=== PATIENT | female | born 1940 | race Caucasian/White ===

== ENCOUNTER → 2023-12-11 09:51 | Outpatient (REF) | payer MEDICARE, SELFPAY ==
[2023-12-11 13:08] LABS: ALT (SGPT) 50 U/L (0-35); AST (SGOT) 37 U/L (14-36); Albumin 3.3 g/dl (3.5-5.0); Alkaline Phosphatase 56 U/L (38-126); Blood Urea Nitrogen 27 mg/dl (7-17); Calcium 8.9 mg/dl (8.4-10.2); Carbon Dioxide 30 mmol/L (22-30); Chloride 102 mmol/L (98-107); Glucose 87 mg/dl (70-99); Sodium 139 mmol/L (135-145); Total Bilirubin 1.1 mg/dl (0.2-1.3); Total Protein 5.3 g/dl (6.3-8.2); eGFR > 60.00
== END ==
LOC: HWLAB 09:51
PROVIDERS: ATTENDING PHYSICIAN Nurse Practitioner; FAMILY PHYSICIAN Student in an Organized Health Care Education/Training Program
DX: I48.0 Paroxysmal atrial fibrillation (principal)
CPT/HCPCS: 36415; 80053

== ENCOUNTER → 2023-12-17 08:46 | Outpatient (REF) | payer MEDICARE, SELFPAY ==
[2023-12-17 09:17] LABS: % Basophils 0.4 % (0-2); % Immature Granulocytes 0.3 % (0-0.5); % Lymphocytes 9.4 % (20.5-51.1); % Neutrophils 79.9 % (42.2-75.2); Absolute Eosinophils 0.2 10^3/uL (0-0.7); Absolute Monocytes 0.9 10^3/uL (0.1-0.6); Absolute Neutrophils 8.7 10^3/uL (1.4-6.5); Hematocrit 50.4 % (37.0-47.0); Hemoglobin 16.3 g/dL (12.0-16.0); Mean Corp Hgb Conc. 32.3 g/dL (33.0-37.0); Mean Corpuscular Hgb 30.9 pg (27.0-31.0); Mean Corpuscular Volume 95.5 fL (81.0-99.0); Mean Platelet Volume 9.7 fL (7.4-10.4); Nucleated Red Blood Cells % 0 %; Platelet Count 276 10^3/uL (130-400); Red Blood Cell Count 5.28 10^6/uL (4.20-5.40); White Blood Cell Count 10.9 10^3/uL (4.8-10.8)
[2023-12-17 09:47] LABS: ALT (SGPT) 50 U/L (0-35); AST (SGOT) 43 U/L (14-36); Albumin 3.8 g/dl (3.5-5.0); Alkaline Phosphatase 72 U/L (38-126); Blood Urea Nitrogen 23 mg/dl (7-17); Calcium 9.1 mg/dl (8.4-10.2); Carbon Dioxide 28 mmol/L (22-30); Chloride 105 mmol/L (98-107); Glucose 99 mg/dl (70-99); Potassium 4.1 mmol/L (3.5-5.1); Sodium 139 mmol/L (135-145); Total Bilirubin 1.2 mg/dl (0.2-1.3); Total Protein 5.9 g/dl (6.3-8.2); eGFR > 60.00
== END ==
LOC: SDSPAT 08:46
PROVIDERS: ATTENDING PHYSICIAN Internal Medicine Cardiovascular Disease; FAMILY PHYSICIAN Student in an Organized Health Care Education/Training Program; OTHER PHYSICIAN Internal Medicine Cardiovascular Disease
DX: Z01.818 Encounter for other preprocedural examination (principal); I48.19 Other persistent atrial fibrillation
CPT/HCPCS: 36415; 80053; 85025; 86850; 86900; 86901; 93005

== ENCOUNTER 2023-12-24 06:14 | Day surgery (SDC) | payer MEDICARE, SELFPAY ==
[2023-12-17 08:55] VITALS: BMI 19.9
[2023-12-24] VITALS (21 sets, daily range): BP systolic 103–131; BP diastolic 66–100; BMI 19.4
[2023-12-24 08:49] LABS: ACT-LR - POC 342 Seconds (116-155)
[2023-12-24 09:09] LABS: ACT-LR - POC 316 Seconds (116-155)
[2023-12-24 09:29] LABS: ACT-LR - POC 314 Seconds (116-155)
[2023-12-24] MEDS: IBUTILIDE 1 MG IV (09:55)
[2023-12-24 10:31] LABS: ACT-LR - POC 384 Seconds (116-155)
--- NOTE | 2023-12-24 10:44 | ITS.CL.ABL ---
[employer] Professional - Ablation
Ablation
Procedure Report:
AFIB ablation:
Ms. Hernandez is a very pleasant 83 yr old woman with medical history significant for symptomatic persistent atrial fibrillation, SSS s/p Dual chamber PPM and severe tricuspid regurgitation, failed DCCV on Sotalol and is recommended rhythm control and
is here in the EP lab for atrial fibrillation ablation
Date of Procedure:
12/24/2023
Indications:
Symptomatic atrial fibrillation
Pre-Operative Diagnosis:
Persistent Atrial fibrillation
Post-Operative Diagnosis:
Persistent Atrial fibrillation
Procedure Performed:
Atrial fibrillation ablation with wide area circumferential ablation (WACA) approach for pulmonary vein isolation
Atypical atrial flutter ablation with roof line formation
Posterior wall isolation
Substrate modification with epicardial connections ablation in the posterior wall
Mitral flutter ablation
Right heart catheterization and manipulation of the RV lead.
Performing Physician:
Chloé Heaton MD
Assistants:
EP staff
Anesthesia:
See anesthesia records
Detailed Description of the Procedure:
Written informed consent was obtained from the patient after a full explanation of the risks and benefits of the procedure including the risks of sedation and anesthesia.
The patient was brought to the electrophysiology laboratory in stable condition in fasting state. Continuous electrocardiographic and hemodynamic monitoring was initiated.
The initial rhythm was atrial fibrillation.
Device Interrogation:
Patient has Medtr[employer] dual chamber PPM in place. The device was interrogated at the start of the case. The device and the lead was working normally. The pacing parameters were changed during the case from 60 bpm to 85 bpm to suppress atrial ectopy
and atrial fibrillaiton. The programmer or analyst remained connected in the room throughout the procedure.
Time out:
The procedure site was meticulously prepared with surgical scrub and allowed to dry with no pooling. Sterile draping was applied to cover the procedure site. The image intensifier was draped with sterile bag and positioned over the patient. After
infusion of local anesthetic, vascular access was obtained under ultrasound guidance and sheaths were placed over guide wire as detailed below.
Sheath and Catheter Placement:
The following catheters / sheaths were placed
Sheaths:
��������������� Agilis sheath in right femoral vein upgraded from 8Fr in right femoral vein
��������������� 9Fr in right femoral vein
���������������
Catheters:
������������� [employer] Guido Thermacool STSF bidirectional (D/F) - at locations of HRA, RV, LA and LV.
������������� Pentaray catheter � at locations of RA� and LA
������������� ICE catheter - at locations of RA, SVC, and RV.
Intracardiac ECHO:
An 8-[place] AcuNav intracardiac ECHO (ICE) probe was advanced through the 9-[place] sheath in the femoral vein into the right atrium under fluoroscopic and ICE ultrasound image guidance and a baseline ECHO study was performed. The left atrial size
was enlarged. There was trace tricuspid regurgitation. The aortic valve was normal. There was borderline normal left ventricular size and function. There was no pericardial effusion. The CHARANJIT has low velocities noted on Doppler in atrial fibrillation
and in sinus. There was significant spontaneous contrast noted. All the four veins were identified and good flow noted.
During the procedure, ICE was used for monitoring of complications, guidance of trans-septal puncture, monitor the catheter position and tracking ablation lesions. No change in the pericardial space noted throughout the procedure.
Trans-septal Puncture:
Heparin was initiated and infused to maintain appropriate ACT.
A J-tipped guidewire was advanced through the 8-[place] sheath in the right femoral vein into the superior vena cava under fluoroscopic and ICE guidance. The 8-[place] sheath was exchanged for an Agilis sheath which was advanced into the superior vena
cava. A BRK needle was advanced until the tip was slightly behind the tip of the dilator inside the Agilis. The apparatus was withdrawn until it was in contact with the fossa ovalis. The position was adjusted based on fluoroscopy and ultrasound
images from ICE. Under fluoroscopic, hemodynamic and ICE ultrasound guidance, left atrium was cannulated by advancing the needle. Once atrial septum was cannulated, the needle was pulled back and saline injection was injected confirming the LA
access. Both the sheath and the dilator was advanced into the left atrium. The dilator with the needle was withdrawn. Blood was aspirated from the Agilis sheath and arterial blood confirmed. The sheath was flushed. Saline injection noted into the
left atrium on ICE. The pressure waveform was checked ad LA pressure measured. The penta-ray catheter was advanced in the Agilis sheath into the left pulmonary vein.
The 3-D mapping was done and then the penta-ray was switched to ablation catheter and back to penta-ray as needed.
3D Electroanatomic Mapping:
Using the Pentaray catheter advanced through Agilis sheath into the left atrium, an electroanatomic map (EAM) of the left atrium was created using [employer] mapping system. The map was used for localization of catheter position and
tacking of ablation lesions. The EAM of the left atrium showed 4 pulmonary veins with all four electrically connected to the body the LA. It showed extensive low voltage areas in atrial fibrillation on the posterior and anterior wall of the LA in
atrial fibrillation and in sinus and paced rhythm.
Of note, there was a narrow LSPV noted. The LSPV pressure gradient was recorded with Agilis sheath in and out of the LSPV. The pressure gradient was 2mmHg from LSPV to the LA main body.
Following the EAM, preparations were made for ablation.
Phrenic nerve stimulation attempt:
The right sided pulmonary veins were identified and the anterior antrum and the deep anterior locations of the PVs were check with high output stimulation that showed no phrenic nerve capture in any of the potential ablation areas.
Safe areas were marked and a design line was created through the safe areas of tested antral myocardium for ablation lesions.
Ablation:
Ablation # 1: Pulmonary vein Isolation:
Radiofrequency ablation was performed using an open irrigation, force-sensing 3.5mm radiofrequency ablation catheter ([employer] STSF) by completing the circumferential lesions around the left and right pulmonary veins achieving pulmonary vein
isolation.
All the ablation lesions were guided by the [facility] SURPOINT module with the posterior lesions were limited to 45 aleman for SURPOINT lesion index goal of 400 and anterior wall lesions were limited to SURPOINT index goal of 450.
The esophagus was noted to be on the left side of the LA near the PV antra based on the locations of the esophageal temperature probe. Ablation was stopped for any temperature increase of 0.1 degree C. Max esophageal temperature was 36.7C.
Cardioversion:
Due to the persistence of atrial fibrillation following the PVI, the decision was made to proceed with a cardioversion followed by the remainder of the ablation as detailed below. Therefore, a 200J shock was delivered to the chest via Zoll patches
placed that was not able to restore sinus rhythm but few beats later did achieve sinus rhythm. The patient remained hemodynamically stable throughout.
The LA was mapped in sinus but the catheter ectopy from the posterior wall already caused atrial fibrillation.
With atrial fibrillation returned so quickly, further EAM and ablation planned.
Ablation # 2: Roof line Formation:
Once the patient was in sinus rhythm.� Catheter in the posterior wall was able to generate atrial flutter which was noted to be involving the roofline. A set of radiofrequency ablations were placed on the roof line connecting the left superior
pulmonary vein ablation lesions to the right superior pulmonary vein lesions rings.
Ablation # 3: Posterior wall isolation with the Box lesions set Formation:
There was a significant fractionation seen in the posterior wall and LA AF foci along with CFAE made it clear as the posterior wall is critical in maintaining the atrial fibrillation and the decision was made to isolate the posterior wall by
creating a �Box� lesions.
A set of radiofrequency ablations were placed on the floor line connecting the left inferior pulmonary vein ablation lesions to the right inferior pulmonary vein lesions rings.
Cardioversion # 2:
Once PWI was achieved, another 200 J was delivered that was able to achieve sinus rhythm. This was again short lived.
The posterior wall was mapped that showed epicardial connections at the center of the LA posterior wall.
The penta-ray in the posterior wall showed entrance block and the pacing from the posterior wall showed local capture with no exit from the box lesions confirming the exit block.
Pulmonary vein entrance block in all veins were identified.� Exit block was difficult to assess given patient was going in and out of atrial fibrillation.
Ablation # 4: Posterior wall Focal atrial fibrillatio ablation:
With the box lesion created and block confirmed, the decision was made to ablate the posterior wall severing epicardial connections.
A series of ablations were placed connecting the junction of right superior pulmonary vein and the roof line to the junction of left inferior pulmonary vein and the floor line ablating the ganglion plexi next to both antra forming a Z line.
Patient again went into atrial flutter.
Ablation # 5: Mitral isthmus dependent atypical flutter:
The series of radiofrequency ablations were placed using an open irrigation, force-sensing 3.5mm radiofrequency ablation catheter ([employer] STSF) by creating ablation lesions from the left inferior PV antrum to the mitral annulus.
The tachycardia was organized in the CHARANJIT but the LA was in atrial fibrillation. The mitral flutter line was able to achieve dissociated LA area from the atrial fibrillation that was coming from the RA.
Cardioversion:
Another DCCV at 150J was done that achieved sinus rhythm again. The modified PPM was pacing the heart at 85 bpm.
Tricuspid regurgitation and RV lead manipulation:
Patient's LV pressure was recorded and RA pressure was recorded with the drawl of the catheter from the left atrium to the right atrium. �Preablation LA pressure was 11 mmHg.� Post ablation LA pressure was 14 and the RA pressure was noted to be at
18 mmHg.
The Agilis sheath and the ablation catheter was moved into the right ventricle.� RV pressure was recorded which was 22/12 mmHg.
On intracardiac echo Dopplers, there was severe tricuspid regurgitation identified.� The RV pacer lead was shaped as an S pushing the leaflet of the tricuspid valve on the side.� Using the ablation catheter the RV lead was pulled from the side of
tricuspid leaflet, but the RV lead was attached and only minimum effect was noted.
After manipulation of the RV lead, RV and RA pressure was recorded again.� The RV pressure was 26/9 mmHg while the RA pressure was 16 mmHg. �This shows only modest improvement in the tricuspid regurgitation with still severe TR present
With manipulation of the RV lead, patient went back into atrial fibrillation.� Decision was made to proceed with ibutilide infusion.�
Pharmacologic cardioversion:
A total of 1 mg Ibutilide was infused over 20 minutes. �With half milligram of ibutilide, patient did achieve sinus rhythm but was going in and out of the A-fib and with slight effusion was continued and a total of 1 mg of Ibutilide was given.
With ibutilide infusion, patient will be admitted for rhythm monitoring overnight.
Sick sinus node identified.� Patient has pacemaker and is atrially paced at this time.�
The AV franko functions are deemed within normal range with first-degree AV block.
Arrhythmia Induction:
No sustained arrhythmia was induced at the end of the study.
Procedure End
ICE study was done again that showed no epicardial accumulation. No complications noted.
Following the completion of the EP study, catheters were removed. Protamine 40 mg was given at the end of the procedure and ACT was checked repeatedly. The sheaths were removed and hemostasis achieved with manual compression after acceptable ACT is
achieved.
Pressure measurements:
Pre-Procedure: Mean LA pressure was 11mmHg
��������������� left superior pulmonary vein: 16 mmHg
Post-Procedure: Mean LA pressure was 14mmHg
Post-Procedure: Mean RA pressure was 18mmHg
Post-Procedure: Mean RV pressure was 12/12mmHg
Post RV lead manipulation:
RV pressure: 26/9 mmHg
RA pressure: 16 mmHg
Estimated Blood loss:
<10 cc
Specimens Removed:
None.
Implants / Devices:
None
Urine output:
None
Packs / Drains/ Tubes:
None
Instrument / Sponge Count Correct:
Yes
Complications of the Procedure:
None
Condition of Patient at Time of Transfer:
Hemodynamically stable with no neurological or vascular compromise.
Summary:
Successful atrial fibrillation ablation with circumferential bidirectional line of block at pulmonary vein antra (Pulmonary vein isolation), Atypical atrial flutter ablation with roof line formation, Posterior wall isolation, Substrate modification
with epicardial connections ablation in the posterior wall, Mitral isthmus ablation for mitral flutter, Right heart catheterization
--- NOTE | 2023-12-24 14:37 | PTCARENOTE ---
Rec'd report from Kiesha in the industrial laborer; Rec'd pt into the rm post Afib ablation at approx 1420. Pt AAOx3 w/no c/o CP or SOB. Pt w/R groin site w/figure of 8 suture still intact & dressing C/D/I. Pt on bedrest for 1 hr post fig of 8 suture clipping.
Pt's daughter at bedside, but leaving shortly. Pt's daughter left a note on the pt's whiteboard w/question for MD & w/her info for a callback. Will advise cardiology. Pt's VS stable. Pt w/callbell within reach & plan of care ongoing.
--- NOTE | 2023-12-24 14:54 | CM ---
Chart reviewed. Patient is independent of ADLS, lives alone in the Independent Living at [facility], 0 DME. Patient is not current with VN and is not interested in VN at this time. Plan is for the patient to return home. CM to follow
[2023-12-24] MEDS: ANESTHETIC LOZENGE 1 LOZENGE PO (16:18)
[2023-12-24] MEDS: ELIQUIS 2.5 MG PO (18:38)
--- NOTE | 2023-12-24 19:00 | PTCARENOTE ---
Pt was intermittently going in & out of rapid Afib w/HR in the 120's-130's since approx 1630. At approx 1800 pt went into sustained rapid Afib w/HR still in 120's-130's. 1800 EKG completed as ordered, pt's QTc 479. Dr Heaton notified of QTC & rapid
Afib confirmed by EKG. Orders rec'd & stat IV Amio dose given by oncoming RN. Pt w/no c/o pain. R groin site ecchymotic, but soft w/no signs or symptoms of hematoma or bleeding. Groin dressing C/D/I. Plan of care ongoing.
[2023-12-24] MEDS: CORDARONE 103 MG IV (19:30)
--- NOTE | 2023-12-24 19:38 | PTCARENOTE ---
Assumed care of patient at 1900, vs downloaded by me were from previous shift.
[2023-12-24] MEDS: TOPROL XL 25 MG PO (21:07)
--- NOTE | 2023-12-25 02:52 | PTCARENOTE ---
Right femoral vein site with dressing dry and intact, ecchymotic. She has been in A-fib for most of the shift in the 120's to 140's. Noted to be A-paced in the 80's around 0200. Now back into A-fib in the 120's. Sleeping at intervals.
[2023-12-25 04:30] VITALS: BP 120/87
[2023-12-25 05:55] LABS: Hematocrit 46.7 % (37.0-47.0); Hemoglobin 15.6 g/dL (12.0-16.0); Mean Corp Hgb Conc. 33.4 g/dL (33.0-37.0); Mean Corpuscular Hgb 30.5 pg (27.0-31.0); Mean Corpuscular Volume 91.2 fL (81.0-99.0); Mean Platelet Volume 9.9 fL (7.4-10.4); Platelet Count 267 10^3/uL (130-400); Red Blood Cell Count 5.12 10^6/uL (4.20-5.40); Red Cell Dist. Width 14.4 % (11.5-14.5); White Blood Cell Count 17.5 10^3/uL (4.8-10.8)
[2023-12-25 06:03] LABS: Blood Urea Nitrogen 24 mg/dl (7-17); Calcium 8.7 mg/dl (8.4-10.2); Carbon Dioxide 20 mmol/L (22-30); Chloride 108 mmol/L (98-107); Estimated Creatinine Clearance 41 ml/min; Glucose 141 mg/dl (70-99); Potassium 3.8 mmol/L (3.5-5.1); Sodium 139 mmol/L (135-145); eGFR > 60.00
[2023-12-25 07:51] VITALS: BP 119/90
--- NOTE | 2023-12-25 08:05 | W.PN.CD ---
Today's Communication / Plan
-
- Switching Sotalol to Amiodarone
- Digoxin today for rate control
- Continue Diltiazem 120mg QD
- PPM reprogrammed to 85 bpm to suppress PACs / AF.
Impression / Plan
-
83 y/o female (patient of Dr. Perez) with PerAF on Eliquis and SSS with pacemaker and severe TR who presented to the office on 11/15/23 with BLE edema and intermittent palpitations. She was seen to be in AFIB with RVR and failed Sotalol with repeated
cardioversions were not able to get her out of AF, underwent AF ablation on 12/24/23
.
Persistent AFIB:
-s/p AF ablation on 12/24/23 - PVI, PWI, Roof flutter, mitral flutter ablation.
-h/o unsuccessful CV 11/21/22 then loaded with sotalol and repeated DCCV failed to convert.
-sinus after ablation but is going in and out of AF/AFL now
-Failed sotalol jigar AF coming from the RA and severe TR
-will start Amiodarone - stop Sotalol and add digoxin for rate control.
-Check TSH and FT4 jigar with start of Amiodarone.
-Follow telemetry
-EKG per protocol, this medicine requires intensive monitoring for toxicity.
-Continue Eliquis 2.5 mg PO BID
LE edema:
-improved with daily Lasix; continue
-check repeat renal labs
Pacemaker:
-RV lead tethered to Tricuspid valve leaflet
-Severe TR - making RA pressure higher than the LA
-Possible R to L shunt - may reduce some symptoms of TR but can cause hypoxia if significant shunt.
-continue to monitor in device clinic per protocol
-Discussed options with Dr. Perez - high risk for lead extraction but a possibility. The lead extraction itself can cause damage to valve leaving significant TR.
-Plan to observe how she does over the next 2-3 months and plan further accordingly.
Dispo:
-Discharge home later today
Physical Exam
Vital Signs/Labs
Vital Signs
Temp Pulse Resp BP Pulse Ox
97.7 F 91 18 120/87 92
12/25/23 07:51 12/25/23 07:51 12/25/23 07:51 12/25/23 04:30 12/25/23 07:51
12/24/23 12/25/23 12/26/23
06:59 06:59 06:59
Actual Weight 54.431 kg
12/25/23 04:45
12/25/23 04:45
Physical Exam
Constitutional: No acute distress and Comfortable
EENT: Anicteric and Moist mucous membranes
Cardiovascular: Rhythm & rate is regular, Pedal edema is absent and JVD pressure is normal
Respiratory: Respiratory effort normal, Lungs clear to auscul. and Wheeze Absent
GI: Soft, Non tender and Normal bowel sounds
Neuro/Psych: Alert, Oriented, AO x 3 and Motor deficits absent
Other: Cath Site and Cardiac Device Site
Data Reviewed
-
Date of Service: December 25, 2023
Medical Decision Making: Reviewed Test Results, Tests Ordered, Independent Historian Assessment and Review of Case with other Provider
EKG: Tracing Personally Visualized and interpreted (atrial paced rhythm now- going in and out of AF/AFL)
Echo: Report Reviewed by me
Labs: Labs Reviewed by me
Old Records: Reviewed
[2023-12-25] MEDS: LANOXIN 250 MCG IV (08:47)
[2023-12-25] MEDS: LASIX 20 MG PO (08:57)
[2023-12-25] MEDS: TOPROL XL 25 MG PO (08:57)
[2023-12-25] MEDS: PACERONE 400 MG PO (08:57)
[2023-12-25] MEDS: ELIQUIS 2.5 MG PO (08:58)
[2023-12-25 09:28] LABS: Free T4 0.52 ng/dl (0.78-2.19)
--- NOTE | 2023-12-25 10:32 | CM ---
Chart reviewed. Patient is independent of ADLS, lives in an apartment in the Independent Living at [address] Plan is for the patient to return home. Patient currently with no needs. CM to follow
[2023-12-25 12:06] VITALS: BP 127/93
[2023-12-25] MEDS: CARDIZEM CD 120 MG PO (12:34)
--- NOTE | 2023-12-25 15:54 | W.DS.TRANS ---
DC Summary - Health Careers Instructor
-
Discharge Instructions:
Sleep Apnea Risk Low
Discharge Diagnosis/Procedures AFib, s/p ablation
Diet Low Cholesterol
Driving Restrictions No driving for 24 hours
Stop these medications: STOP sotalol
Instructions:
Stand-Alone Forms: DC Instructions- Cath/EP Lab
Changes to Home Medications: Yes
Discharge Medications:
DC Medications w/original date entered in [employer]
apixaban 2.5 mg tablet (Eliquis) 2.5 mg PO BID Blood clot prevention/tx 08/16/20
furosemide 20 mg tablet 20 mg PO DAILY 11/21/23
diltiazem HCl 120 mg capsule,extended release 24 hr (Cardizem CD) 120 mg PO DAILY #30 caps 11/23/23
metoprolol succinate 25 mg tablet,extended release 24 hr (Toprol XL) 25 mg PO BID #60 tabs 11/23/23
amiodarone 200 mg tablet 200 mg PO DAILY #120 tabs 12/25/23
Home Medication Changes
STOP: sotalol
NEW: amiodarone
Pending Results: No
== END 2023-12-25 15:20 | disposition home or self-care (01) ==
LOC: CATH 06:14
PROVIDERS: Nurse Practitioner; ATTENDING PHYSICIAN Internal Medicine Cardiovascular Disease; FAMILY PHYSICIAN Student in an Organized Health Care Education/Training Program; OTHER PHYSICIAN Internal Medicine Cardiovascular Disease
DX: I48.19 Other persistent atrial fibrillation (principal); I48.4 Atypical atrial flutter; Z79.01 Long term (current) use of anticoagulants; Z95.0 Presence of cardiac pacemaker
CPT/HCPCS: C1769; C1732; C1894; C1766; C1892; C1759; 76937; 80048; 84439; 84443; 85027; 85347; 86900; 86901; 92960; 93005; 93451; 93655; 93656; J1160; J1742

== ENCOUNTER → 2024-02-29 09:56 | Outpatient (REF) | payer MEDICARE, SELFPAY ==
[2024-02-29 13:31] LABS: Free T4 0.81 ng/dl (0.78-2.19)
== END ==
LOC: OLABPV 09:56
PROVIDERS: ATTENDING PHYSICIAN Student in an Organized Health Care Education/Training Program
DX: R79.89 Other specified abnormal findings of blood chemistry (principal); Z79.899 Other long term (current) drug therapy
CPT/HCPCS: 36415; 84439; 84443

== ENCOUNTER → 2024-03-20 13:24 | Outpatient (REF) | payer MEDICARE, SELFPAY ==
[2024-03-20 15:17] LABS: ALT (SGPT) 34 U/L (0-35); AST (SGOT) 39 U/L (14-36); Albumin 4.7 g/dl (3.5-5.0); Alkaline Phosphatase 71 U/L (38-126); Blood Urea Nitrogen 23 mg/dl (7-17); Calcium 9.4 mg/dl (8.4-10.2); Carbon Dioxide 28 mmol/L (22-30); Chloride 101 mmol/L (98-107); Glucose 101 mg/dl (70-99); Potassium 4.6 mmol/L (3.5-5.1); Sodium 136 mmol/L (135-145); Total Bilirubin 0.9 mg/dl (0.2-1.3); Total Protein 7.3 g/dl (6.3-8.2); eGFR 55.55
[2024-03-20 15:47] LABS: TSH Reflex To Free T4 6.99 uIU/ml (0.47-4.68)
[2024-03-20 16:17] LABS: Free T4 2.06 ng/dl (0.78-2.19)
== END ==
LOC: HWLAB 13:24
PROVIDERS: ATTENDING PHYSICIAN Student in an Organized Health Care Education/Training Program
DX: E03.9 Hypothyroidism, unspecified (principal); Z00.00 Encounter for general adult medical examination without abnormal findings
CPT/HCPCS: 36415; 80053; 84439; 84443

== ENCOUNTER → 2024-04-01 08:48 | Outpatient (REF) | payer MEDICARE, SELFPAY | LOC: HWRAD 08:48 | PROVIDERS: ATTENDING PHYSICIAN Student in an Organized Health Care Education/Training Program | DX: Z12.31 Encounter for screening mammogram for malignant neoplasm of breast (principal); M85.80 Other specified disorders of bone density and structure, unspecified site; M85.89 Other specified disorders of bone density and structure, multiple sites | CPT/HCPCS: 77063; 77067; 77080 ==

== ENCOUNTER → 2024-04-11 09:03 | Outpatient (REF) | payer MEDICARE, SELFPAY | LOC: RCS 09:03 | PROVIDERS: ATTENDING PHYSICIAN Internal Medicine Cardiovascular Disease; FAMILY PHYSICIAN Student in an Organized Health Care Education/Training Program | DX: I48.0 Paroxysmal atrial fibrillation (principal); I36.1 Nonrheumatic tricuspid (valve) insufficiency; Z95.0 Presence of cardiac pacemaker; Z98.890 Other specified postprocedural states; Z79.01 Long term (current) use of anticoagulants; I49.5 Sick sinus syndrome | CPT/HCPCS: 93306 ==

== ENCOUNTER 2024-12-17 06:32 | Day surgery (SDC) | payer MEDICARE, SELFPAY ==
[2024-12-17 12:08] VITALS: BMI 18.8
[2024-12-17 12:09] VITALS: BP 129/87
[2024-12-17] MEDS: ALCAINE 0.5% EYE DROPS 1 DROP OPHTH (12:15)
[2024-12-17] MEDS: PRED FORTE 1% EYE DROPS 1 DROP OPHTH (12:16)
[2024-12-17] MEDS: NEO-SYNEPHRINE 2.5% OPH SOL. 1 DROP OPHTH (12:17)
[2024-12-17] MEDS: CYCLOGYL 1% EYE DROPS 1 DROP OPHTH (12:17)
[2024-12-17] MEDS: MYDRIACYL 1 DROP OPHTH (12:18)
[2024-12-17] MEDS: ACUVAIL 10 DROPS OPHTH (12:18)
[2024-12-17] MEDS: POLYTRIM OPHTHALMIC SOLUTION 1 DROP OPHTH (12:18)
[2024-12-17] MEDS: AKTEN OPHTHALMIC GEL 1 ML OPHTH (12:19)
[2024-12-17 15:10] VITALS: BP 125/90
== END 2024-12-17 15:45 | disposition home or self-care (01) ==
LOC: SDS 06:32
PROVIDERS: ATTENDING PHYSICIAN Ophthalmology
PROC: 08RJ3JZ Replacement of Right Lens with Synthetic Substitute, Percutaneous Approach (ICD-10-PCS; 2024-12-17)
DX: H25.11 Age-related nuclear cataract, right eye (principal)
CPT/HCPCS: 66984

== ENCOUNTER 2024-12-31 06:37 | Day surgery (SDC) | payer MEDICARE, SELFPAY ==
[2024-12-31 08:23] VITALS: BMI 18.6
[2024-12-31 08:24] VITALS: BMI 18.6
[2024-12-31 08:31] VITALS: BP 124/82
[2024-12-31] MEDS: ALCAINE 0.5% EYE DROPS 1 DROP OPHTH (08:58)
[2024-12-31] MEDS: NEO-SYNEPHRINE 2.5% OPH SOL. 1 DROP OPHTH (08:58)
[2024-12-31] MEDS: CYCLOGYL 1% EYE DROPS 1 DROP OPHTH (08:59)
[2024-12-31] MEDS: POLYTRIM OPHTHALMIC SOLUTION 1 DROP OPHTH (08:59)
[2024-12-31] MEDS: PRED FORTE 1% EYE DROPS 1 DROP OPHTH (08:59)
[2024-12-31] MEDS: MYDRIACYL 1 DROP OPHTH (08:59)
[2024-12-31] MEDS: AKTEN OPHTHALMIC GEL 1 ML OPHTH (09:00)
[2024-12-31] MEDS: ACUVAIL 1 DROPS OPHTH (09:00)
[2024-12-31 10:50] VITALS: BP 122/82
[2024-12-31 11:10] VITALS: BP 128/80
== END 2024-12-31 11:18 | disposition home or self-care (01) ==
LOC: SDS 06:37
PROVIDERS: ATTENDING PHYSICIAN Ophthalmology
PROC: 08RK3JZ Replacement of Left Lens with Synthetic Substitute, Percutaneous Approach (ICD-10-PCS; 2024-12-31)
DX: H25.12 Age-related nuclear cataract, left eye (principal)
CPT/HCPCS: 66984

== ENCOUNTER → 2025-01-05 11:00 | Outpatient (REF) | payer MEDICARE, SELFPAY ==
[2025-01-05 17:54] LABS: Urine Albumin Negative (Neg - Trace); Urine Bilirubin Negative (Negative); Urine Character Slightly Cloudy (Clear); Urine Glucose Negative (Negative); Urine Ketone Negative (Negative); Urine Leukocyte Negative (Negative); Urine Nitrite Negative (Negative); Urine Occult Blood Negative (Negative); Urine Specific Gravity 1.015 (<1.030); Urine Urobilinogen Negative (Neg - 1+)
[2025-01-05 17:59] LABS: Urine Color Straw
== END ==
LOC: OLABPV 11:00
PROVIDERS: ATTENDING PHYSICIAN Nurse Practitioner Acute Care; FAMILY PHYSICIAN Student in an Organized Health Care Education/Training Program
DX: R35.0 Frequency of micturition (principal)
CPT/HCPCS: 81003

== ENCOUNTER → 2025-03-10 07:02 | Outpatient (REF) | payer MEDICARE, SELFPAY | LOC: RCS 07:02 | PROVIDERS: ATTENDING PHYSICIAN Internal Medicine Cardiovascular Disease; FAMILY PHYSICIAN Student in an Organized Health Care Education/Training Program | DX: I36.1 Nonrheumatic tricuspid (valve) insufficiency (principal) | CPT/HCPCS: 93306 ==

== ENCOUNTER → 2025-04-01 10:38 | Outpatient (REF) | payer MEDICARE, SELFPAY ==
[2025-04-01 12:06] LABS: ALT (SGPT) 24 U/L (0-35); AST (SGOT) 27 U/L (14-36); Albumin 4.5 g/dl (3.5-5.0); Alkaline Phosphatase 60 U/L (38-126); Blood Urea Nitrogen 18 mg/dl (7-17); Calcium 9.2 mg/dl (8.4-10.2); Carbon Dioxide 26 mmol/L (22-30); Chloride 108 mmol/L (98-107); Glucose 95 mg/dl (70-99); HDL Cholesterol 57 mg/dl; LDL Cholesterol, Calculated 115 mg/dl; Potassium 4.2 mmol/L (3.5-5.1); Sodium 143 mmol/L (135-145); Total Bilirubin 1.2 mg/dl (0.2-1.3); Total Cholesterol 208 mg/dl (50-199); Total Protein 6.8 g/dl (6.3-8.2); Triglyceride 180 mg/dl (10-149); Very Low Density Lipoprotein 36 mg/dl (0-30); eGFR > 60.00
[2025-04-01 12:19] LABS: % Basophils 0.6 % (0-2); % Eosinophils 2.2 % (0-6); % Immature Granulocytes 0.4 % (0-0.5); % Lymphocytes 16.9 % (20.5-51.1); % Monocytes 7.6 % (1.7-9.3); % Neutrophils 72.3 % (42.2-75.2); Absolute Basophils 0.1 10^3/uL (0-0.2); Absolute Eosinophils 0.2 10^3/uL (0-0.7); Absolute Lymphocytes 1.8 10^3/uL (1.2-3.4); Absolute Monocytes 0.8 10^3/uL (0.1-0.6); Absolute Neutrophils 7.6 10^3/uL (1.4-6.5); Hematocrit 48.7 % (37.0-47.0); Hemoglobin 15.7 g/dL (12.0-16.0); Mean Corp Hgb Conc. 32.2 g/dL (33.0-37.0); Mean Corpuscular Hgb 30.7 pg (27.0-31.0); Mean Corpuscular Volume 95.1 fL (81.0-99.0); Mean Platelet Volume 10.3 fL (7.4-10.4); Nucleated Red Blood Cells % 0 %; Platelet Count 381 10^3/uL (130-400); Red Blood Cell Count 5.12 10^6/uL (4.20-5.40); White Blood Cell Count 10.5 10^3/uL (4.8-10.8)
[2025-04-01 12:39] LABS: TSH Reflex To Free T4 5.71 uIU/ml (0.47-4.68)
[2025-04-01 12:58] LABS: Vitamin B12 428 pg/ml (239-931)
[2025-04-01 13:07] LABS: Free T4 2.59 ng/dl (0.78-2.19)
[2025-04-03 12:58] LABS: Syphilis/T. pallidum Ab Reflex Negative (Negative)
== END ==
LOC: OLABPV 10:38
PROVIDERS: ATTENDING PHYSICIAN Student in an Organized Health Care Education/Training Program
DX: Z00.00 Encounter for general adult medical examination without abnormal findings (principal); R06.09 Other forms of dyspnea; E03.9 Hypothyroidism, unspecified; R41.3 Other amnesia; R79.89 Other specified abnormal findings of blood chemistry
CPT/HCPCS: 36415; 80053; 80061; 82607; 84439; 84443; 85025; 86780

== ENCOUNTER → 2025-05-19 12:02 | Outpatient (REF) | payer MEDICARE, SELFPAY | LOC: OLABPV 12:02 | PROVIDERS: ATTENDING PHYSICIAN Student in an Organized Health Care Education/Training Program | DX: E03.9 Hypothyroidism, unspecified (principal) | CPT/HCPCS: 36415; 84439; 84443 ==

== ENCOUNTER → 2025-07-17 10:40 | Outpatient (REF) | payer MEDICARE, SELFPAY | LOC: OLABPV 10:40 | PROVIDERS: ATTENDING PHYSICIAN Student in an Organized Health Care Education/Training Program | DX: E03.9 Hypothyroidism, unspecified (principal) | CPT/HCPCS: 36415; 84443 ==

== ENCOUNTER → 2025-09-01 07:50 | Outpatient (REF) | payer MEDICARE, SELFPAY ==
[2025-09-01 10:45] LABS: Hematocrit 45.8 % (37.0-47.0); Hemoglobin 14.8 g/dL (12.0-16.0); Mean Corp Hgb Conc. 32.3 g/dL (33.0-37.0); Mean Corpuscular Volume 91.8 fL (81.0-99.0); Platelet Count 345 10^3/uL (130-400); Red Cell Dist. Width 14.6 % (11.5-14.5)
[2025-09-01 11:03] LABS: ALT (SGPT) 22 U/L (0-35); AST (SGOT) 23 U/L (14-36); Albumin 4.2 g/dl (3.5-5.0); Alkaline Phosphatase 70 U/L (38-126); Blood Urea Nitrogen 17 mg/dl (7-17); Calcium 9.2 mg/dl (8.4-10.2); Carbon Dioxide 27 mmol/L (22-30); Chloride 107 mmol/L (98-107); Glucose 114 mg/dl (70-99); Potassium 4.1 mmol/L (3.5-5.1); Sodium 137 mmol/L (135-145); Total Protein 6.9 g/dl (6.3-8.2); eGFR > 60.00
== END ==
LOC: HWLAB 07:50
PROVIDERS: ATTENDING PHYSICIAN Internal Medicine Cardiovascular Disease; FAMILY PHYSICIAN Student in an Organized Health Care Education/Training Program
DX: I48.0 Paroxysmal atrial fibrillation (principal); I49.5 Sick sinus syndrome
CPT/HCPCS: 36415; 80053; 85027